=== PATIENT | female | born 1990 | race African-American/Black ===

== ENCOUNTER 2016-03-20 17:03 | Emergency (ER) | payer MEDICAID ==
[2016-03-20] VITALS (7 sets, daily range): BP systolic 156–177; BP diastolic 92–120; PULSE 100–110; RESP 16–18; TEMP 99.4–102.8; O2SAT 96–98
[~2016-03-20] VITALS: Ht 175.3 cm; Wt 126.5 kg
[2016-03-20] MEDS ORDERED: SODIUM CHLOR 0.9% 1000 ML INJ 1,000 ML IV SCH (19:16)
--- NOTE | 2016-03-20 19:21 | PD ---
HPI Chief Complaint: Cold / Flu Symptoms Time Seen by Provider: 19:16 Travel History International Travel<30 days: No Contact w/Intl Traveler<30days: No Traveled to known affect area: No History of Present Illness HPI The patient is a 25-year-old female that complains of a cough and fever for 4 days. She also has nausea and vomiting. She does not have diarrhea. She has no local doctor, she is from [place]. She states there is no possibility of . PFSH Past Medical History Medical History: Denies Significant Hx Tetanus Vaccination: < 5 Years Influenza Vaccination: No ?: Not LMP: 2 MONTHS AGO-ON CONTROL Past Surgical History Surgical History: No Previous Surgery Social History Alcohol Use: No Tobacco Use: No Substance Use: No Allergies-Medications (Allergen,Severity, Reaction): Coded Allergies: No Known Allergies (Unverified , 03/20/16) Reported Meds & Prescriptions Reported Meds & Active Scripts Active Phenergan (Promethazine HCl) 25 Mg Tab 25 Mg PO Q6H PRN Review of Systems Except as stated in HPI: all other systems reviewed are Neg Physical Exam Narrative GENERAL: The patient is obese, alert, oriented 3, mild to moderately dehydrated appearing in moderate apparent distress with her nausea. Her vital signs show temperature 100.6 and heart rate of 110 but are otherwise normal. SKIN: Warm and dry. HEAD: Atraumatic. Normocephalic. EYES: Pupils equal and round. No scleral icterus. No injection or drainage. ENT: No nasal bleeding or discharge. Mucous membranes pink and moist. The tympanic membranes are clear and the throat is clear. NECK: Trachea midline. No JVD. CARDIOVASCULAR: Regular rate and rhythm. No murmur appreciated. RESPIRATORY: No accessory muscle use. Clear to auscultation. Breath sounds equal bilaterally. GASTROINTESTINAL: Abdomen soft, non-tender, nondistended. Hepatic and splenic margins not palpable. No guarding or rebound is present. MUSCULOSKELETAL: No obvious deformities. No clubbing. No cyanosis. No edema. NEUROLOGICAL: Awake and alert. No obvious cranial nerve deficits. Motor grossly within normal limits. Normal speech. PSYCHIATRIC: Appropriate mood and affect; insight and judgment normal. Data Data Last Documented VS Vital Signs Date Time Temp Pulse Resp B/P Pulse Ox O2 Delivery O2 Flow Rate FiO2 03/20/16 19:12 106 18 96 Room Air 03/20/16 19:11 102.8 163/94 Orders Complete Blood Count With Diff (03/20/16 19:16) Comprehensive Metabolic Panel (03/20/16 19:16) Lipase (03/20/16 19:16) Urinalysis - C+S If Indicated (03/20/16 19:16) Iv Access Insert/Monitor (03/20/16 19:16) Ecg Monitoring (03/20/16 19:16) Oximetry (03/20/16 19:16) Ondansetron Inj (Zofran Inj) (03/20/16 19:30) Sodium Chlor 0.9% 1000 Ml Inj (Ns 1000 M (03/20/16 19:16) Sodium Chloride 0.9% Flush (Ns Flush) (03/20/16 19:30) Lactic Acid Sepsis Protocol (03/20/16 19:16) Influenzae A/B Antigen (03/20/16 19:16) Blood Culture (03/20/16 19:16) Sodium Chloride 0.9% Flush (Ns Flush) (03/20/16 19:30) Ketorolac Inj (Toradol Inj) (03/20/16 19:45) Labs Laboratory Tests Test 03/20/16 03/20/16 19:45 19:50 White Blood Count 7.3 TH/MM3 Red Blood Count 4.36 MIL/MM3 Hemoglobin 12.0 GM/DL Hematocrit 36.5 % Mean Corpuscular Volume 83.8 FL Mean Corpuscular Hemoglobin 27.5 PG Mean Corpuscular Hemoglobin 32.8 % Concent Red Cell Distribution Width 14.1 % Platelet Count 273 TH/MM3 Mean Platelet Volume 8.4 FL CBC Comment AUTO DIFF Neutrophils % (Manual) 73 % Band Neutrophils % 4 % Lymphocytes % 15 % Monocytes % 7 % Eosinophils % 1 % Neutrophils # (Manual) 5.6 TH/MM3 Differential Comment FINAL DIFF MANUAL Platelet Estimate NORMAL Platelet Morphology Comment ENLARGED Red Cell Morphology Comment NORMAL Sodium Level 137 MEQ/L Potassium Level 3.6 MEQ/L Chloride Level 102 MEQ/L Carbon Dioxide Level 27.7 MEQ/L Anion Gap 7 MEQ/L Blood Urea Nitrogen 6 MG/DL Creatinine 1.00 MG/DL Estimat Glomerular Filtration 83 ML/MIN Rate Random Glucose 87 MG/DL Calcium Level 8.7 MG/DL Total Bilirubin 0.3 MG/DL Aspartate Amino Transf 18 U/L (AST/SGOT) Alanine Aminotransferase 17 U/L (ALT/SGPT) Alkaline Phosphatase 61 U/L Total Protein 8.3 GM/DL Albumin 3.5 GM/DL Lipase 86 U/L Lactic Acid Level 1.4 mmol/L MDM Medical Decision Making Medical Screen Exam Complete: Yes Emergency Medical Condition: Yes Medical Record Reviewed: Yes Interpretation(s) The influenza A/B antigen is negative for flu a and flu B antigen. The CBC is normal, the white count is only 7300. The complete metabolic profile shows a GFR of 83, total protein of 8.3 but otherwise normal. The lipase is normal and the lactic acid is normal. Differential Diagnosis Sepsis, pneumonia, gastroenteritis, dehydration, flu syndrome, viral syndrome Narrative Course It is now 8:51 PM and she is successfully drinking Gatorade and is not nauseated. Impression: Viral syndrome Plan: The patient be given Phenergan every 6 hours as needed for nausea. She needs to increase her clear liquid intake. If not better in 5 days, she should return to emergency department or follow-up with a primary care physician. Diagnosis Primary Impression: Viral syndrome Additional Impressions: Nausea and vomiting Mild dehydration Additional Instructions: Increase liquid intake with clear liquids. Avoid fatty foods like fried foods such as [place] fries, ortiz, hamburgers in the next 24 hours. These foods will make him nauseated. In the next 24 hours stick with only clear liquids and then gradually reintroduce your diet. Scripts Promethazine (Phenergan)25 Mg Tab25 Mg PO Q6H PRN (Nausea/Vomiting) #30 TAB Ref 0 Prov:Edward Hubbard MD 03/20/16 Disposition: 01 DISCHARGE HOME Condition: Stable Edward Hubbard MD Mar 20, 2016 19:21
[2016-03-20] MEDS ORDERED: ONDANSETRON HCL 4 MG/2 ML VIAL IVP ONE (19:30)
[2016-03-20] MEDS ORDERED: SODIUM CHLORIDE 0.9% FLUSH 5 ML FLUSH IVF PRN ×2 (19:30)
[2016-03-20] MEDS ORDERED: KETOROLAC TROMETHAMINE 60 MG/2 ML (IM) VIAL IVP ONE (19:45)
[2016-03-20 20:09] LABS: HEMATOCRIT 36.5 % (35.0-46.0); MEAN CELL VOLUME 83.8 FL (80.0-100.0); MEAN CORPUSCULAR HEMOGLOBIN 27.5 PG (27.0-34.0); MEAN CORPUSCULAR HGB CONC 32.8 % (32.0-36.0); PLATELET COUNT 273 TH/MM3 (150-450); RED BLOOD COUNT 4.36 MIL/MM3 (4.00-5.30); RED CELL DISTRIBUTION WIDTH 14.1 % (11.6-17.2); WHITE BLOOD COUNT 7.3 TH/MM3 (4.0-11.0)
[2016-03-20 20:13] LABS: HEMO FLAGS AUTO DIFF
[2016-03-20 20:18] LABS: CHLORIDE 102 MEQ/L (98-107); POTASSIUM 3.6 MEQ/L (3.5-5.1); SODIUM (NA) 137 MEQ/L (136-145)
[2016-03-20 20:23] LABS: ANION GAP 7 MEQ/L (5-15); BICARBONATE 27.7 MEQ/L (21.0-32.0); BLOOD UREA NITROGEN 6 MG/DL (7-18)
[2016-03-20 20:26] LABS: ALT (GPT) 17 U/L (10-53); AST (GOT) 18 U/L (15-37); GLOMERULAR FILTRATION RATE 83 ML/MIN (>89)
[2016-03-20 20:28] LABS: TOTAL BILIRUBIN ADULT 0.3 MG/DL (0.2-1.0)
[2016-03-20 20:29] LABS: ALKALINE PHOSPHATASE 61 U/L (45-117)
[2016-03-20 20:43] LABS: BANDS 4 % (0-6); NEUTROPHIL # MANUAL DIFF 5.6 TH/MM3 (1.8-7.7); POLYS (SEG NEUTROPHILS) 73 % (16-70)
[2016-03-20 20:44] LABS: EOSINOPHILS 1 % (0-4); PLATELET ESTIMATE SMEAR NORMAL (NORMAL); PLATELET MORPHOLOGY ENLARGED (NORMAL); SCAN/DIFF FINAL DIFF MANUAL
[2016-03-20] MEDS ORDERED: PROM25TA5 PO (21:07)
== END 2016-03-20 21:40 | disposition home or self-care (01) ==
LOC: PHED 17:03
DX: B34.9 Viral infection, unspecified (principal); E86.0 Dehydration
CPT/HCPCS: 80053; 83605; 83690; 85007; 85027; 87040; 87804; 96361; 96374; 96375; 99283; J1885; J2405; J7030